=== PATIENT | male | born 1940 ===

== ENCOUNTER → 2019-07-10 09:34 | Day surgery (SDC) | payer MEDICARE, MEDICAID ==
[~2019-07-10 09:34] MED LIST: Clindamycin 600 MG/D5W BAG(*) 600 MG/50 ML BAG IV ONE; Diazepam TAB(*) 5 MG ONE; Lidocaine 1% INJ* 10 MG/ML 30 ML SDV ONE; Midazolam* 1 MG/ML 5 ML VIAL (5 MG) ONE; fentaNYL* 50 MCG/ML 2 ML VIAL (100 MCG VIAL) ONE
[2019-07-10 13:35] VITALS: BP 131/58
--- NOTE | 2019-07-10 14:26 | OP ---
CC: Dr. Boogie * DATE OF OPERATION: 07/10/19 - [facility] CATH DATE OF : 44 SURGEON: Bertt De MD ANESTHESIA: Local anesthesia with conscious sedation. PRE-OP DIAGNOSIS: Dual-chamber pacemaker, at elective replacement indicator. POST-OP DIAGNOSIS: Dual-chamber pacemaker, at elective replacement indicator. OPERATIVE PROCEDURE: Pacemaker generator change, [employer] dual-lead system. ESTIMATED BLOOD LOSS: Nil. COMPLICATIONS: None. INDICATIONS: The patient is a 79-year-old gentleman with a pacemaker implantation in 1997 who has been followed by Dr. Boogie. The patient's device reached elective replacement indicator and generator change was recommended. DESCRIPTION OF PROCEDURE: The patient was brought to the procedure room in a fasting state. Informed consent had been obtained prior to the procedure. All labs were reviewed. The patient was placed supine on the procedure table. His left deltopectoral area was cleaned and draped in the usual fashion. 1% lidocaine was used for local anesthesia. A 4 cm incision was made across the belly of the pacemaker and blunt dissection was carried down to the fiber sheath. The fiber sheath was opened and the pacemaker was removed from the pocket. The pacemaker was detached from the atrial and ventricular leads, and a new generator was attached appropriately to the atrial and ventricular leads. The pocket was flushed with normal saline. The new generator was placed in the pocket. The surgical incision was closed in 3 layers. The patient tolerated the procedure well with no complications. The explanted device is [employer] Model [id number], serial number [id number]. The implanted device is [employer] Model [id number], serial number [id number]. The patient tolerated the procedure well. The patient will be seen in followup in 1 week. [id number]/[facility] #: [id number] MTDD
== END | disposition home or self-care (01) ==
LOC: CHICATH 09:34
PROVIDERS: ATTEND Specialist
DX: Z45.010 Encounter for checking and testing of cardiac pacemaker pulse generator [battery] (principal); I44.0 Atrioventricular block, first degree; I49.5 Sick sinus syndrome; R94.31 Abnormal electrocardiogram [ECG] [EKG]; F17.210 Nicotine dependence, cigarettes, uncomplicated; R55 Syncope and collapse; Z88.0 Allergy status to penicillin; I69.351 Hemiplegia and hemiparesis following cerebral infarction affecting right dominant side
CPT/HCPCS: 33228; 88300; 99156; 99157; A9270-GY; C1785; J2250; J3010